=== PATIENT | female | born 1980 | race Caucasian/White ===

== ENCOUNTER 2016-09-26 18:48 | Observation (INO) ==
[2016-09-26] MEDS ORDERED: 0.9 % Sodium Chloride 1,000 ML IVC ONE (20:00)
[2016-09-26] MEDS ORDERED: Prochlorperazine 10 MG/2 ML VIAL IVP STA (20:01)
--- NOTE | 2016-09-26 20:07 | Emergency Department Note ---
Disposition Clinical Impression: Seizure Headache Qualifiers: Headache type: unspecified Headache chronicity pattern: acute headache Intractability: not intractable Qualified Code(s): R51 - Headache Disposition: Admitted As Inpatient Condition: Good Time of Disposition: 01:07 General Adult HPI - General Chief complaint: ED Syncope Stated complaint: Syncope,poss seizure Time Seen by Provider: 09/26/16 19:18 Source: patient Mode of arrival: ambulatory Limitations: no limitations Nursing Notes Reviewed: Yes Vital Signs Reviewed: Yes - History of Present Illness HPI Narrative: Possible seizure today while at [facility]. She was sitting on a ledge whenever she fell backwards into [facility]. Bystander states she had seizure-like activity for approximately 5 seconds. She did urinate on herself. She was confused for approximately 20 minutes after this. Patient does not remember this event. She is reporting a headache at this time. She states it feels like her previous headaches. It is behind her right eye. Pain Scale: 4 - Related Data Home Medications Medication Instructions Recorded Confirmed Amantadine [Symmetrel] 100 mg PO BID 09/26/16 09/26/16 Amitriptyline [Elavil] 25 mg PO DAILY 09/26/16 09/26/16 Bupropion HCl [Wellbutrin Xl] 300 mg PO QAM 09/26/16 09/26/16 Cetirizine HCl [Zyrtec] 10 mg PO BID PRN 09/26/16 09/26/16 Cyclobenzaprine [Flexeril] 10 mg PO TID PRN 09/26/16 09/26/16 Fluticasone Propionate Nasal 1 spr NS BID 09/26/16 09/26/16 [Flonase] Furosemide [Lasix] 20 mg PO DAILY PRN 09/26/16 09/26/16 Omeprazole [PriLOSEC] 20 mg PO DAILY 09/26/16 09/26/16 Pregabalin [Lyrica] 75 mg PO BID 09/26/16 09/26/16 Tramadol HCl [Ultram] 50 mg PO TID PRN 09/26/16 09/26/16 Allergies Allergy/AdvReac Type Severity Reaction Status Date / Time morphine AdvReac Vomiting Verified 09/26/16 22:09 Penicillins AdvReac Vomiting Verified 09/26/16 22:09 Review of Systems: Patient denies any fevers or chills. She denies any vomiting or diarrhea. She does report a headache at this time. She states this is consistent with previous migraines. She reports associated nausea with this. Also some mild photophobia. She denies any visual disturbances. She denies any shortness of breath or chest pain. She denies any swelling or edema to her extremities. All systems ED: reviewed and negative except as stated. Past Medical History - Past Medical History Medical history: Reports: no medical history Psychiatric history: Reports: ADHD - Social History Smoking Status: Former smoker Smokeless Tobacco Status: No Alcohol use: Reports: none Drug use: Reports: none Physical Exam - General Limitations: no limitations General appearance: alert, in no apparent distress - Head Head exam: atraumatic, normocephalic, normal inspection - Eye Eye exam: Present: normal appearance, PERRL, EOMI. Absent: scleral icterus, conjunctival injection - ENT ENT exam: normal exam, normal oropharynx, mucous membranes moist - Neck Neck exam: Present: normal inspection, full ROM, trachea midline. Absent: tenderness, meningismus, lymphadenopathy - Chest Chest inspection: Present: normal inspection - Respiratory Respiratory exam: Present: normal lung sounds bilaterally. Absent: respiratory distress - Cardiovascular Cardiovascular exam: Present: regular rate, normal rhythm, normal heart sounds - Abdominal Exam Abdominal exam: Present: soft, Non-Tender, normal bowel sounds. Absent: tenderness, distention, guarding, rebound, rigidity, organomegaly - Extremities Exam Extremities exam: Present: normal inspection, full ROM, normal capillary refill. Absent: tenderness, pedal edema, calf tenderness - Back Exam Back exam: Present: normal inspection, full ROM. Absent: tenderness, CVA tenderness (R), CVA tenderness (L) - Neurological Exam Neurological exam: Present: alert, oriented X3, CN II-XII intact. Absent: motor sensory deficit - Psychiatric Psychiatric exam: Present: normal affect, normal mood - Skin Skin exam: Present: warm, dry, intact, normal color. Absent: rash, cyanosis, diaphoresis, erythema, pallor Course Course Narrative: Well-appearing female patient presents to the emergency department complaining of a headache. She states she woke up this morning with a headache it resolved and then she had an episode of possible seizure and the headache returned. She states that her headache currently feels like her normal migraines. She is nauseated with it. She does have photophobia. She reports the pain is to the right side of her head behind her eye. She is also reporting that they went to [facility] earlier today and she had a possible seizure. The reports that the patient was sitting on a lead bystanders told her because she was gone at the time that the patient fell backwards into some mulch and had seizure- like activity. The reports she did bite her tongue and she has some urine incontinence. The bystanders reported the seizure activity lasted for seconds. She was then taken to the nurse's station. The states the patient was confused for approximately 20 minutes after the event. Patient has had no seizure history previously. However she has had recent history of 3 concussions over the past 6-7 months. Patient states she frequently gets migraines and was reporting that about 3-4 times a week however they have decreased to 1-2 times a week since she has been on amitriptyline at night. The patient has also been switched recently and placed on Wellbutrin for the past week. She has been taking this to help with her headaches and foggy feeling. She intermittently takes tramadol but has not had this in the past 2 days. She states she has been seen by a concussion clinic up at [facility]. She does not follow with a specific neurologist. She is currently mentating appropriately. She does appear slightly nervous. She does not appear to be in any distress. She states she does get nervous when she comes to the hospital. Her lung sounds are clear heart tones are normal and abdomen is soft and nontender. She denies any urinary symptoms. She denies any hematuria hematochezia or melena. She denies any swelling to her extremities. She denies any visual disturbances. She denies any drug use. We will do CT of patient's head. She is neurologically intact at this time. I do not appreciate any signs of trauma to her tongue however the does report that it was bleeding earlier today. We will also get basic lab workup on the patient. As well as a UA. We will likely admit the patient to the hospital for new onset seizures. - Reevaluation(s) Reevaluation #1: After a long discussion with the patient about the benefits of the lumbar puncture she is requesting to hold off until this can be done under fluoroscopic guidance. Discussed the risks and benefits of this with her and that we would begin her on antibiotics tonight admitted to the hospital for further evaluation in the morning. She expresses understanding and is agreeable with this plan. We will hold off on the LP at this time. Patient was reevaluated and states that her headache is actually getting better at this time. She is still mentating appropriately. She has had no episodes of seizures when she is here. She does have a small tremor in her hands bilaterally. She states this is been going on ever since she was started on Wellbutrin. Time: 23:35 - Consultations Consultation #1: Dr Oneill accepted patient in stable condition. Time: 00:33 Vital Signs Temperature 97.7 F 09/26/16 18:56 Pulse Rate 110 09/26/16 18:56 Respiratory Rate 16 09/26/16 18:56 Blood Pressure 190/95 09/26/16 18:56 O2 Sat by Pulse Oximetry 100 09/26/16 18:56 Temperature 98.2 F 09/27/16 01:18 Pulse Rate 98 09/27/16 01:18 Respiratory Rate 18 09/27/16 01:18 Blood Pressure 163/88 09/27/16 01:18 O2 Sat by Pulse Oximetry 100 09/27/16 01:18 Oxygen Delivery Oxygen Delivery Room Air Medical Decision Making - Medical Records Medical records reviewed: Yes I reviewed the patient's medical records. - Lab Data Lab results reviewed: Yes I reviewed the patient's lab results. Result diagrams: 09/26/16 20:35 09/26/16 20:35 Lab Results 09/26/16 09/26/16 09/26/16 Range/Units 20:35 20:35 20:36 WBC 17.3 H (4.3-11.1) K/mcL RBC 5.05 H (3.82-4.97) M/mcL Hgb 13.2 (11.5-15.4) g/dL Hct 42.5 (35.3-44.9) % MCV 84.2 (83.0-100.0) fL MCH 26.1 L (28.0-33.3) pg MCHC 31.1 L (31.6-35.5) g/dL RDW 15.6 H (11.5-14.5) % Plt Count 316 (140-400) K/mcL MPV 10.6 (9.4-12.4) fL Immature Gran % 0.6 (0-4) % Seg Neutrophils % 82.3 % Lymphocytes % 9.0 % Monocytes % 7.4 % Eosinophils % 0.4 % Basophils % 0.3 % Neutrophils # 14.2 H (1.6-8.9) K/mcL Lymphocytes # 1.6 (0.6-4.6) K/mcL Monocytes # 1.3 (0.0-1.3) K/mcL Eosinophils # 0.1 (0.0-0.6) K/mcL Basophils # 0.1 (0.0-0.2) K/mcL Sodium 140 (136-145) mEq/L Potassium 3.4 L (3.5-4.5) mEq/L Chloride 107 (98-109) mEq/L Carbon Dioxide 25 (19-29) mEq/L BUN 11 (7-20) mg/dL Creatinine 1.17 H (0.57-1.11) mg/dL Est GFR ( Amer) > 60 (> 60) Est GFR (Non-Af Amer) 52 L (> 60) BUN/Creatinine Ratio 9 (6-26) Glucose 93 (70-99) mg/dL Calculated Osmolality 289 (280-300) Calcium 9.3 (8.6-10.8) mg/dL Prolactin 15.62 (5.18-26.53) ng/mL Urine Color Yellow (Yellow) Urine Clarity Clear (Clear) Urine pH 5.5 (5.0-8.0) pH Units Ur Specific [place] 1.027 H (1.010-1.025) Urine Protein Trace (Neg-Trace) mg/dL Urine Glucose (UA) 250 H (Normal) mg/dL Urine Ketones Trace H (Negative) mg/dL Urine Blood Negative (Negative) Urine Nitrite Negative (Negative) Urine Bilirubin Negative (Negative) Urine Urobilinogen Normal (Normal) mg/dL Ur Leukocyte Esterase Small H (Negative) Urine Microscopic RBC 3-5 H (0-3) per hpf Urine Microscopic WBC 5-15 H (0-3) per hpf Ur Squamous Epith Cells Many H (None-Few) per lpf Urine Bacteria Few (None-Few) per hpf Hyaline Casts None Seen (None-Few) per lpf Ur Culture Indicated? YES A (NO) Urine Opiates Screen (Loyvrg=664) ng/mL Ur Barbiturates Screen (Gjznpl=028) ng/mL Ur Phencyclidine Scrn (Cutoff=25) ng/mL Ur Amphetamines Screen (Lmoakq=4306) ng/mL U Benzodiazepines Scrn (Hfcvau=049) ng/mL Urine Cocaine Screen (Cutoff= 300) ng/mL U Marijuana (THC) Screen (Cutoff = 50) ng/mL 09/26/16 Range/Units 20:36 WBC (4.3-11.1) K/mcL RBC (3.82-4.97) M/mcL Hgb (11.5-15.4) g/dL Hct (35.3-44.9) % MCV (83.0-100.0) fL MCH (28.0-33.3) pg MCHC (31.6-35.5) g/dL RDW (11.5-14.5) % Plt Count (140-400) K/mcL MPV (9.4-12.4) fL Immature Gran % (0-4) % Seg Neutrophils % % Lymphocytes % % Monocytes % % Eosinophils % % Basophils % % Neutrophils # (1.6-8.9) K/mcL Lymphocytes # (0.6-4.6) K/mcL Monocytes # (0.0-1.3) K/mcL Eosinophils # (0.0-0.6) K/mcL Basophils # (0.0-0.2) K/mcL Sodium (136-145) mEq/L Potassium (3.5-4.5) mEq/L Chloride (98-109) mEq/L Carbon Dioxide (19-29) mEq/L BUN (7-20) mg/dL Creatinine (0.57-1.11) mg/dL Est GFR ( Amer) (> 60) Est GFR (Non-Af Amer) (> 60) BUN/Creatinine Ratio (6-26) Glucose (70-99) mg/dL Calculated Osmolality (280-300) Calcium (8.6-10.8) mg/dL Prolactin (5.18-26.53) ng/mL Urine Color (Yellow) Urine Clarity (Clear) Urine pH (5.0-8.0) pH Units Ur Specific [place] (1.010-1.025) Urine Protein (Neg-Trace) mg/dL Urine Glucose (UA) (Normal) mg/dL Urine Ketones (Negative) mg/dL Urine Blood (Negative) Urine Nitrite (Negative) Urine Bilirubin (Negative) Urine Urobilinogen (Normal) mg/dL Ur Leukocyte Esterase (Negative) Urine Microscopic RBC (0-3) per hpf Urine Microscopic WBC (0-3) per hpf Ur Squamous Epith Cells (None-Few) per lpf Urine Bacteria (None-Few) per hpf Hyaline Casts (None-Few) per lpf Ur Culture Indicated? (NO) Urine Opiates Screen Negative (Ovqkum=179) ng/mL Ur Barbiturates Screen Negative (Oeminr=733) ng/mL Ur Phencyclidine Scrn Negative (Cutoff=25) ng/mL Ur Amphetamines Screen Negative (Whknwd=1421) ng/mL U Benzodiazepines Scrn Negative (Hsztzm=086) ng/mL Urine Cocaine Screen Negative (Cutoff= 300) ng/mL U Marijuana (THC) Screen Negative (Cutoff = 50) ng/mL - Radiology Data Radiology results reviewed: Yes I reviewed the patient's radiology results. Chest X-Ray 09/26/16 19:19 IMPRESSION: Normal chest x-ray D/ / Trevor Bay MD / Trevor Bay MD Interpreting Provider: Trevor Bay MD Head CT 09/26/16 20:00 IMPRESSION: No acute intracranial abnormality. D/ / Joaquin Wolf MD / Joaquin Wolf MD Interpreting Provider: Joaquin Wolf MD - EKG Data EKG #1 EKG results narrative: Patient's EKG shows a sinus tachycardia at 101 bpm low-voltage throughout with no acute ST or T-wave changes. This is unchanged from her prior EKG from 2013 Attestation Statement - Attestation Attestation: I personally interviewed and examined this patient and my medical decision- making was reviewed with the ED Resident Physician, Dr. Roque I agree with the documented findings, disposition and treatment plan as described except to the extent set forth below. Pt is a 36 yo wf, hx of migraine LEMUS's who presents to the ER by PV with her SO, with reports of syncope vs seizure. Pt was at [facility] today and was sitting when she fell backwards and began with shaking, urinary incontinence, and tongue biting; followed by a period of approx 20 min that she was resting and awake but confused. Pt with GCS=15 on arrival, no focal neuro deficits, with no prior history of seizures. Patient denies any falls or trauma prior to this episode. Patient states that she awoke this morning approximately 8 AM with a right-sided headache that felt very similar to her prior . Progressed to involve her entire head this one remained right-sided and was mild, patient took Excedrin with complete resolution of headache and proceeded to [facility] with friends in was enjoying the day. Patient states she did have a recurrence of her headache this afternoon and was sitting on the edge of a low wall that had mulch behind it and was witnessed to fall backwards and have this what appeared to be a seizure episode. Patient does complain of ongoing right- sided headache at this time associated with photophobia and mild nausea. I agree with patient's physical exam findings as documented. Patient is awake alert and oriented 4 in no acute distress. Patient is tachycardic and hypertensive on arrival. Patient with no focal neurologic deficits on examination good strength in bilateral upper and lower extremities bilaterally. Patient was placed in seizure precautions IV saline well was established, patient was placed on library monitor and continuous pulse ox. EKG was obtained which showed a normal sinus rhythm with no acute ST or T-wave changes. Patient had labs drawn and sent was continued to be monitored closely and was sent to CT for acute neurologic imaging. Portal chest x-ray was also obtained. Both imaging studies were within normal limits no acute abnormalities were seen. Patient has remained neurologically stable throughout her ED course with no recurrence of seizure activity. Patient's white count is significantly elevated today compared to 6 days ago when she had blood work done. Patient is afebrile here, denies any preceding URI symptoms sinus symptoms cold coughs sore throat or any other infectious-like symptoms prior to the onset of today's headaches. Patient gets frequent migraines that are similar in onset duration character and severity to today's headache. Planned to perform lumbar puncture for complete evaluation of fever with neurologic changes seizure which is new onset and elevated white count. 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 We will go ahead and empirically cover her with antibiotics at this time. Patient remained hemodynamically stable and on reevaluation headache has resolved. Patient will be admitted for further evaluation of new onset seizures and headaches.
[2016-09-26 20:41] LABS: Bilirubin,Urine Negative (Negative); Blood,Urine Negative (Negative); Color,Urine Yellow (Yellow); Glucose,Urine (UA) 250 mg/dL (Normal); Ketones,Urine Trace mg/dL (Negative); Leukocyte Esterase,Urine Small (Negative); Nitrite,Urine Negative (Negative); PH,Urine 5.5 pH Units (5.0-8.0); Protein,Urine Trace mg/dL (Neg-Trace); Specific Gravity,Urine 1.027 (1.010-1.025); Urobilinogen,Urine Normal (Normal)
[2016-09-26 20:42] LABS: Bacteria,Urine Few per hpf (None-Few); Hyaline Casts,Urine None Seen per lpf (None-Few); Squamous Epithelial Cell,Urine Many per lpf (None-Few)
[2016-09-26 20:43] LABS: Clarity,Urine Clear (Clear)
[2016-09-26 20:45] LABS: Basophils # 0.1 K/mcL (0.0-0.2); Basophils % 0.3 %; Eosinophils # 0.1 K/mcL (0.0-0.6); Eosinophils % 0.4 %; Hematocrit 42.5 % (35.3-44.9); Hemoglobin 13.2 g/dL (11.5-15.4); Immature Granulocytes % 0.6 % (0-4); Lymphocytes # 1.6 K/mcL (0.6-4.6); Mean Corpuscular HGB Conc 31.1 g/dL (31.6-35.5); Mean Corpuscular Hemoglobin 26.1 pg (28.0-33.3); Mean Corpuscular Volume 84.2 fL (83.0-100.0); Mean Platelet Volume 10.6 fL (9.4-12.4); Monocytes # 1.3 K/mcL (0.0-1.3); Monocytes % 7.4 %; Neutrophils # 14.2 K/mcL (1.6-8.9); Platelet Count 316 K/mcL (140-400); Red Blood Count 5.05 M/mcL (3.82-4.97); Red Cell Distribution Width 15.6 % (11.5-14.5); Segmented Neutrophils % 82.3 %
[2016-09-26 20:55] LABS: Amphetamine Screen,Urine Negative ng/mL (Cutoff=1000); Barbiturate Screen,Urine Negative ng/mL (Cutoff=200); Benzodiazepines Screen,Urine Negative ng/mL (Cutoff=200); Cannabinoid Screen,Urine Negative ng/mL (Cutoff = 50); Cocaine Screen,Urine Negative ng/mL (Cutoff= 300); Opiate Screen,Urine Negative ng/mL (Cutoff=300); Phencyclidine Screen,Urine Negative ng/mL (Cutoff=25)
[2016-09-26 20:57] LABS: BUN/Creatinine Ratio 9 (6-26); Blood Urea Nitrogen 11 mg/dL (7-20); Calcium 9.3 mg/dL (8.6-10.8); Carbon Dioxide 25 mEq/L (19-29); Chloride 107 mEq/L (98-109); Glucose 93 mg/dL (70-99); Osmolality,Calculated 289 (280-300); Potassium 3.4 mEq/L (3.5-4.5); Sodium 140 mEq/L (136-145); eGFR For African Americans > 60 (> 60); eGFR For Non-African Americans 52 (> 60)
[2016-09-26] MEDS ORDERED: Ketorolac 15 MG/ML VIAL IVP ONE (21:30)
[2016-09-26 21:44] LABS: Prolactin 15.62 ng/mL (5.18-26.53)
[2016-09-26] MEDS ORDERED: Vancomycin 2,000 MG in D5% in Water 500 ML IVPB ONE (23:42)
[2016-09-27] MEDS ORDERED: Furosemide 20 MG TABLET PO PRN (01:45)
[2016-09-27] MEDS ORDERED: Loratadine 10 MG TABLET PO PRN (01:45)
[2016-09-27] MEDS ORDERED: traMADol 50 MG TABLET PO PRN (01:45)
[2016-09-27] MEDS ORDERED: *HR* LORazepam 2 MG/ML VIAL IVP PRN (01:46)
[2016-09-27] MEDS ORDERED: *HR* OxyCODONE/APAP 5/325 TABLET PO ONE (01:47)
[2016-09-27] MEDS ORDERED: *HR* Metoprolol 5 MG/5 ML VIAL IVP PRN (01:47)
[2016-09-27] MEDS ORDERED: Ondansetron 4 MG/2 ML VIAL IVP PRN (01:49)
[2016-09-27] MEDS ORDERED: Naloxone 0.4 MG/ML INJ IVP PRN (01:49)
[2016-09-27] MEDS ORDERED: 0.9 % Sodium Chloride w KCl 20 MEQ/1,000 ML MLS IVC SCH (02:00)
--- NOTE | 2016-09-27 02:06 | Internal Med History&Physical ---
Date of Encounter: 09/27/16 Time of Encounter: 01:30 Assessment and Plan (1) New onset seizure Current visit: Yes Status: Acute Witnessed tonic clonic seizure at a [facility] today History of recurrent concussions in the last few months secondary to work injuries No recurrent episode since hospitalization CT head negative for any acute intracranial abnormality will obtain MR head Neurology consultation requested EEG Ativan 2mg IV PRN seizure will closely monitor Hold Welbutrin at this time (2) Headache Current visit: Yes Status: Chronic continue home medications Improved since admission Qualifiers: Headache type: unspecified Headache chronicity pattern: unspecified pattern Intractability: not intractable Qualified Code(s): R51 - Headache (3) Leukocytosis Current visit: Yes Status: Acute Can be reactive secondary to the seizure episode Patient received one dose of Vancomycin and Ceftriaxone in the ER NO clinical signs present at this time concerning for meningitis, Evaluate in Am for the need for LP and continuation of abx will closely monitor Qualifiers: Leukocytosis type: unspecified Qualified Code(s): D72.829 - Elevated white blood cell count, unspecified (4) DVT prophylaxis Current visit: Yes Status: Acute Early ambulation (5) Chronic lower back pain Current visit: Yes Status: Chronic continue home medications Qualifiers: Back pain laterality: unspecified Sciatica presence: with sciatica Sciatica laterality: sciatica laterality unspecified Qualified Code(s): M54.40 - Lumbago with sciatica, unspecified side; G89.29 - Other chronic pain Internal Medicine - H&P: HPI Chief complaint: new onset seizures Admitted From: Home Plans for Post Hospital Care: Home History of present illness: Ms. Simmons is a 36 year old female with PMH Of ADHD, chronic back pain secondary to lumbar degenerative disc disease, migraine, concussions secondary to work related injuries, and morbid obesity who is brought to the ER after witnessed episode of new onset seizure. Patient was at [facility] earlier today when she had a witness seizure episode. She fell backwards from a ledge, noted to have generalized tonic clonic seizure like activity with loss of bladder function and tongue bitting. Patient was noted to remain in post ictal state for 20 minutes after the witnessed episode. No prior episodes have been reported. No recurrent episodes have been reported since her hospitalization. She also reports of recently starting Welbutrin for ADHD and has been noticing tremors in her bilateral hands. At this time she is resting in bed and reports of generalized headache consistent with her chronic migraines. Denies any lightheadedness, dizziness, chest pain, sob, abd pain, n/v , fever, or chills at this time. Noted to have leukocytosis in the ER along with headache, ER physician ordered a LP, however patient refused and wishes to be done under Fluorscopy. Denies smoking history Past Med Surg Social Fam HX - Past Medical History Medical history: no medical history Psychiatric history: ADHD - Past Surgical History Surgical History: no surgical history - Social History Smoking Status: Former smoker Smokeless Tobacco Status: No Alcohol use: none Drug use: none - Family History Grandfather Living Status: Age at : 70 Hx Family Cancer: Yes (Pancreatic cancer) Grandmother Living Status: Still Living Hx Family Endocrine Disorder: Yes (DM type two) Internal Medicine - H&P: Meds Amantadine [Symmetrel] 100 mg PO BID 09/26/16 [History] Amitriptyline [Elavil] 25 mg PO DAILY 09/26/16 [History] Bupropion HCl [Wellbutrin Xl] 300 mg PO QAM 09/26/16 [History] Cetirizine HCl [Zyrtec] 10 mg PO BID PRN 09/26/16 [History] Cyclobenzaprine [Flexeril] 10 mg PO TID PRN 09/26/16 [History] Fluticasone Propionate Nasal [Flonase] 1 spr NS BID 09/26/16 [History] Furosemide [Lasix] 20 mg PO DAILY PRN 09/26/16 [History] Omeprazole [PriLOSEC] 20 mg PO DAILY 09/26/16 [History] Pregabalin [Lyrica] 75 mg PO BID 09/26/16 [History] Tramadol HCl [Ultram] 50 mg PO TID PRN 09/26/16 [History] Allergies morphine Adverse Reaction (Verified 09/26/16 22:09) Vomiting Penicillins Adverse Reaction (Verified 09/26/16 22:09) Vomiting All Systems PM: A 10-system review of systems was performed and is negative for pertinent findings except as documented above in the HPI. - Constitutional Constitutional: as per HPI - Constitutional Vitals: Temp Pulse Resp BP Pulse Ox 98.2 F 98 18 163/88 100 09/27/16 01:18 09/27/16 01:18 09/27/16 01:18 09/27/16 01:18 09/27/16 01:18 General appearance: Present: cooperative, A&O X 3, morbidly obese, pleasant, no acute distress, answers questions appropriately - Head Head exam: Present: atraumatic, normocephalic - Eye Eye exam: Present: conjuntiva pink, sclera anicteric - Respiratory Respiratory exam: Present: CTAB. Absent: accessory muscle use, rales, rhonchi, wheezes - Cardiovascular Cardiovascular exam: Present: +S1, +S2, tachycardia. Absent: diastolic murmur, gallop, rubs, systolic murmur - GI/Abdominal GI/Abdominal exam: Present: normal bowel sounds, soft, no peritoneal signs. Absent: distended, tenderness - Extremities Exam Extremities exam: Present: warm, radial pulses palpable and symetrical. Absent : calf tenderness, cyanotic, pedal edema - Neurological Exam Neurological exam: Present: alert, oriented X3, no focal deficits, strengths equal and symetr throughout. Absent: pronater drift, facial droop, speech deficit - Psychiatric Psychiatric exam: Present: normal affect, normal mood Internal Med - H&P Results - Labs CBC & Chem 7: 09/26/16 20:35 09/26/16 20:35
[2016-09-27 06:24] LABS: Basophils % 0.5 %; Eosinophils # 0.1 K/mcL (0.0-0.6); Eosinophils % 1.4 %; Hematocrit 42.1 % (35.3-44.9); Hemoglobin 12.5 g/dL (11.5-15.4); Immature Granulocytes % 0.4 % (0-4); Lymphocytes # 1.4 K/mcL (0.6-4.6); Lymphocytes % 16.9 %; Mean Corpuscular HGB Conc 29.7 g/dL (31.6-35.5); Mean Corpuscular Hemoglobin 26.2 pg (28.0-33.3); Mean Corpuscular Volume 88.3 fL (83.0-100.0); Mean Platelet Volume 11.1 fL (9.4-12.4); Monocytes # 0.8 K/mcL (0.0-1.3); Monocytes % 9.3 %; Platelet Count 201 K/mcL (140-400); Red Blood Count 4.77 M/mcL (3.82-4.97); Red Cell Distribution Width 15.8 % (11.5-14.5); Segmented Neutrophils % 71.5 %
[2016-09-27 06:34] LABS: BUN/Creatinine Ratio 10 (6-26); Blood Urea Nitrogen 9 mg/dL (7-20); Calcium 8.4 mg/dL (8.6-10.8); Carbon Dioxide 20 mEq/L (19-29); Chloride 109 mEq/L (98-109); Glucose 82 mg/dL (70-99); Magnesium 1.8 mg/dL (1.6-2.6); Osmolality,Calculated 280 (280-300); Phosphorous 3.2 mg/dL (2.3-4.7); Sodium 136 mEq/L (136-145); eGFR For African Americans > 60 (> 60); eGFR For Non-African Americans > 60 (> 60)
--- NOTE | 2016-09-27 07:32 | Event Note ---
Date of Encounter: 09/27/16 Time of Encounter: 07:20 36/F Brief past medical history: ADHD, chronic back pain, migraine, multiple contusions Emergency room evaluation: Patient was evaluated in the emergency room for new onset of seizure. Patient had underlying leukocytosis, she was started on IV antibiotics. Hospital course: Patient was hospitalized for further workup. Noted that CT scan of the head is negative for any acute intracranial event. IV antibiotics were discontinued. Neurology evaluation requested along with MRI scan of the brain and EEG. This morning patient is comfortably lying in bed. Patient denies chest pain, palpitation, abdominal pain nausea, vomiting or diarrhea. Patient does have history of palpitations 2 days before the episode. This episode of seizure happened in [facility]. There was a witness who claims that this episode lasted for 30 seconds. Patient had amnesia for 30 minutes after the episode. Patient had a bladder incontinence. Patient had a tongue bite. On examination: Pulse: 90, blood pressure: 150/97, respiratory rate: 17 per minute, oxygen saturation on room air: 97% I examined the patient at bedside where her is present during my examination. Patient has permission to talk about her healthcare status in front of her . Examination of head, eyes, nose, ear, throat and cervical area did not reveal any abnormality. Tongue bite noted. Examination of cardiovascular system did not reveal any abnormal heart sounds or murmur. Examination of the respiratory system did not reveal abnormal breath sounds. Her abdomen was soft nontender. Brief neurological examination was within normal limit. Skin did not show any break or bruises. Assessment and plan: -We will continue present management. -We will await for neurology evaluation. -At this point patient denies for lumbar puncture. -Neurology to address issues regarding driving.
[2016-09-27 07:53] LABS: Neutrophils # 5.9 K/mcL (1.6-8.9)
[2016-09-27] MEDS ORDERED: Fluticasone Propionate Nasal 50 MCG/SPRAY BOTTLE NS SCH (09:00)
[2016-09-27] MEDS ORDERED: Pregabalin 75 MG CAPSULE PO SCH (09:00)
[2016-09-27] MEDS ORDERED: Acetaminophen/Aspirin/Caffeine TABLET PO PRN (10:31)
--- NOTE | 2016-09-27 11:15 | Neurology - Consult Note ---
Date of Encounter: 09/27/16 Time of Encounter: 10:30 Assessment and Plan (1) Seizure Current Visit: Yes Status: Acute Patient's history of sudden onset tonic-clonic activity with postictal state, tongue biting, and incontinence makes patient's episode more likely seizure. Patient was concerning for possible meningitis with a leukocytosis of 17.3. Patient's WBC is 8.3 today. Patient's elevation is most likely stress related secondary to seizure activity. Patient has a mild hypo-Cassini but otherwise patient's labs are unremarkable today. Patient's head CT and MRI did not show any signs of hemorrhage or infarct. Plan: EEG History of Present Illness Chief complaint: seizure HPI: Ms. Simmons is a 36 year old female with past medical history for 3 concussions in the past 6 months He complains of seizure 1 day ago. Patient states that she is taking Dilantin and she was feeling hot and exhausted and he [place] senior living in the shade and sat on a brick wall were moments later she fell backwards and a witness states that she started shaking violently seizure-like activity for about 30 seconds or so and then was confused for about 30 minutes afterwards. Patient bit her tongue, had urinary incontinence. Patient denies previous seizure activity. Patient states that for the prior 3 days she started having upper extremity tremors which she thought was secondary to newly starting wellbutrin times one week ago. Denies alcohol use, illicit drug use, quit smoking 4 years ago Patient denies any fever, chills, nausea, vomiting, shortness of breath, chest pain, abdominal pain, back pain, neck pain leading up to the event. Patient admits to migraine-type headache with sensitivity to light and tinnitus was no new change in symptomology. Patient states that she currently has a migraine now and has some sensitivity to light and tinnitus but denies any other symptoms at this time. Past Med Surg Social Fam HX - Past Medical History Attestation: Yes The following information was validated with the patient. Source: patient Medical history: no medical history Psychiatric history: ADHD - Past Surgical History Surgical History: no surgical history - Social History Smoking Status: Former smoker Smokeless Tobacco Status: No Alcohol use: none Drug use: none - Family History Grandfather Living Status: Age at : 70 Hx Family Cancer: Yes (Pancreatic cancer) Grandmother Living Status: Still Living Hx Family Endocrine Disorder: Yes (DM type two) Medications and Allergies Amantadine [Symmetrel] 100 mg PO BID 09/26/16 [History] Amitriptyline [Elavil] 25 mg PO DAILY 09/26/16 [History] Bupropion HCl [Wellbutrin Xl] 300 mg PO QAM 09/26/16 [History] Cetirizine HCl [Zyrtec] 10 mg PO BID PRN 09/26/16 [History] Cyclobenzaprine [Flexeril] 10 mg PO TID PRN 09/26/16 [History] Fluticasone Propionate Nasal [Flonase] 1 spr NS BID 09/26/16 [History] Furosemide [Lasix] 20 mg PO DAILY PRN 09/26/16 [History] Omeprazole [PriLOSEC] 20 mg PO DAILY 09/26/16 [History] Pregabalin [Lyrica] 75 mg PO BID 09/26/16 [History] Tramadol HCl [Ultram] 50 mg PO TID PRN 09/26/16 [History] Allergies morphine Adverse Reaction (Verified 09/26/16 22:09) Vomiting Penicillins Adverse Reaction (Verified 09/26/16 22:09) Vomiting All Systems: A 10-system review of systems was performed and is negative for pertinent findings except as documented above in the HPI. - Constitutional Constitutional ROS IM: as per HPI Physical Examination - Vital Signs Vital Signs: Initial Vital Signs Temp Pulse Resp BP Pulse Ox 97.7 F 110 16 190/95 100 09/26/16 18:56 09/26/16 18:56 09/26/16 18:56 09/26/16 18:56 09/26/16 18:56 - Constitutional General appearance: comfortable - Neurologic Sensorimotor examination: intact Detailed motor examination: grossly full strength in all extremities, full strength in all major muscle groups Motor examination - right side: 5: deltoids, biceps, triceps, wrist flexion, wrist extension, corn sheller operator, hip flexors, tibialis Anterior, quadriceps, toe extension (EHL), plantarflexion Motor examination - left side: 08/03: deltoids, biceps, triceps, wrist flexion, wrist extension, hip flexors, corn sheller operator, quadriceps, tibialis Anterior, toe extension (EHL), plantarflexion Detailed sensory examination: intact, light touch Reflexes: Biceps: 2+, Triceps: 2+, Brachioradialis: 2+, Patella: 2+, Achilles: 2 + Mental Status Examination: awake, alert, oriented to person, oriented to place, oriented to time, follows commands appropriately, answers questions appropriately, no agnosia, no aphasia, no aproxia Cranial nerve examination: PERRL, EOMI, visual rodgers intact, corneal reflexes brisk symmetrically, sensory to face intact, mastication intact, no facial asymmetry is present, no dysarthria, hearing is intact symmetrically, soft palate elevates bilaterally upon phonation, gag reflex intact, flexes SCM and trapezius muscles symmetrically with full power, tongue protrudes midline, no atrophy or facial fasiculations present Cerebellar examination: no dysmetria, performs finger to nose and heel to garcia symmetrically without ataxia, no gait ataxia, no truncal ataxia, no difficulty with rapid alternating movements Results - Laboratory Findings CBC and BMP: 09/27/16 06:03 09/27/16 06:03 Abnormal lab findings: Abnormal lab results MCH 26.2 pg (28.0-33.3) L 09/27/16 06:03 MCHC 29.7 g/dL (31.6-35.5) L 09/27/16 06:03 RDW 15.8 % (11.5-14.5) H 09/27/16 06:03 Calcium 8.4 mg/dL (8.6-10.8) L 09/27/16 06:03 Ur Specific [place] 1.027 (1.010-1.025) H 09/26/16 20:36 Urine Glucose (UA) 250 mg/dL (Normal) H 09/26/16 20:36 Urine Ketones Trace mg/dL (Negative) H 09/26/16 20:36 Ur Leukocyte Esterase Small (Negative) H 09/26/16 20:36 Urine Microscopic RBC 3-5 per hpf (0-3) H 09/26/16 20:36 Urine Microscopic WBC 5-15 per hpf (0-3) H 09/26/16 20:36 Ur Squamous Epith Cells Many per lpf (None-Few) H 09/26/16 20:36 Ur Culture Indicated? YES (NO) A 09/26/16 20:36 - Diagnostic Findings Additional findings: Chest X-Ray 09/26/16 19:19 IMPRESSION: Normal chest x-ray D/ / Trevor Bay MD / Trevor Bay MD Interpreting Provider: Trevor Bay MD Head CT 09/26/16 20:00 IMPRESSION: No acute intracranial abnormality. D/ / Joaquin Wolf MD / Joaquin Wolf MD Interpreting Provider: Joaquin Wolf MD Brain MRI 09/27/16 01:48 IMPRESSION: No acute intracranial abnormality. The bilateral hippocampal and parahippocampal structures are within normals. D/ / Markel Benson MD / Markel Benson MD Interpreting Provider: Markel Benson MD Consult Discharge Plan - Plan Referrals: Anat Shaw, WARD NURSE [Primary Care Provider] - 10/12/16 11:30 am
--- NOTE | 2016-09-27 11:58 | EEG/EMG/Oth Biometrics Report ---
EEG Procedure Report Date of procedure: 09/27/16 EEG Procedure: Routine EEG Procedure Note: Medication: no anticonvulsants listed. Report: This EEG was acquired with standard international 10-20 electrode placement system with EKG recording. The Background activity during this EEG was characterized by the presence of posterior dominant alpha rhythm with best frequency up to 10Hz. The background activity was reactive to eye openings. Sleep stages were characterized by presence of Vertex waves, K-complexes and sleep spindles. There are no electricographic seizures identified during this tracing. There are however, few intermittent, diffuse sharp/slow waves, occurring synchronously , during drowsiness. No focal slowing noted during this recording. Photic stimulation produced photic driving at the bilateral occipital region. Hyperventilation procedure produced no abnormalities. EKG tracing showed no significant cardiac dysarrhythmia. Impression: This is a mild abnormal EEG due to presence of few intermittent, synchronous high amplitude sharp/slow wave activity during drowsiness. Clinical Correlation: This EEG showed abnormal findings that may suggest increased susceptibility for a generalized seizure disorder. This could be seen as an interictal phenomenon in patients with generalized epilepsy. Clinical correlation is advised. Prolonged EEG recording can be useful in seizure confirmation.
--- NOTE | 2016-09-27 12:01 | Electrocardiograph Report ---
[address] [address] Test Date: 2016-09-26 Pat Name: Renetta Simmons Department: 102 Room: 2NE16 Gender: F Speech Therapy Assistant: Andrae : 1980 Requested By: Giovanni Reveles Order Number: [id number] Reading MD: Ghulam Rothman MD Measurements Intervals Holley Rate: 101 P: 46 LA: 140 QRS: 4 QRSD: 77 T: 2 QT: 343 QTc: 401 Interpretive Statements SINUS TACHYCARDIA LOW QRS VOLTAGE IN PRECORDIAL LEADS Electronically Signed On 09-27-2016 11:59:53 EDT by Ghulam Rothman MD
[2016-09-27] MEDS ORDERED: *HR* Promethazine 25 MG/ML VIAL IVP ONE (13:59)
[2016-09-27] MEDS ORDERED: Ketorolac 30 MG/ML VIAL IVP ONE (14:00)
[2016-09-27 15:42] VITALS: BP 149/92
--- NOTE | 2016-09-27 17:31 | Discharge Summary ---
Date of Encounter: 09/27/16 Time of Encounter: 17:29 - Discharge Diagnosis (1) New onset seizure Priority: Primary Status: Acute (2) Headache Priority: Secondary Status: Chronic Qualifiers: Headache type: unspecified Headache chronicity pattern: unspecified pattern Intractability: not intractable Qualified Code(s): R51 - Headache (3) Chronic lower back pain Priority: Secondary Status: Chronic Qualifiers: Back pain laterality: unspecified Sciatica presence: with sciatica Sciatica laterality: sciatica laterality unspecified Qualified Code(s): M54.40 - Lumbago with sciatica, unspecified side; G89.29 - Other chronic pain (4) DVT prophylaxis Priority: Secondary Status: Acute - Discharge Medications Home Medications: Amantadine [Symmetrel] 100 mg PO BID 09/26/16 [History] Amitriptyline [Elavil] 25 mg PO DAILY 09/26/16 [History] Cetirizine HCl [Zyrtec] 10 mg PO BID PRN 09/26/16 [History] Cyclobenzaprine [Flexeril] 10 mg PO TID PRN 09/26/16 [History] Fluticasone Propionate Nasal [Flonase] 1 spr NS BID 09/26/16 [History] Furosemide [Lasix] 20 mg PO DAILY PRN 09/26/16 [History] Omeprazole [PriLOSEC] 20 mg PO DAILY 09/26/16 [History] Pregabalin [Lyrica] 75 mg PO BID 09/26/16 [History] Tramadol HCl [Ultram] 50 mg PO TID PRN 09/26/16 [History] Allergies/Adverse Reactions: Allergies morphine Adverse Reaction (Verified 09/26/16 22:09) Vomiting Penicillins Adverse Reaction (Verified 09/26/16 22:09) Vomiting Procedures/tests Complete & Pending: Procedures Performed prior 72 hours Category Date Time Status MR head/brain wo con [MR] Routine MRI 09/27/16 01:48 Completed Date of admission: 09/27/16 00:40 Primary care physician: Anat Shaw CNP Consults: 09/27/16 01:50 Consult to Neurology [CONS] Routine Consulting Provider: Neurology [facility] Reason for Consult: NEW ONSET SEIZURES Call Completed: No 09/27/16 09:32 Consult to Interpret Exam [CONS] Routine Consulting Provider: Dominique Lilly Consult to Interpret Exam: Interpret EEG Discharging clinician: Gaurav Hummel - Patient Status Disposition: Home, Self-Care Condition: Good Functional capacity at discharge: independent ambulation Overall status at discharge: patient is progressing back to baseline - Discharge Instructions Follow Up With: Anat Shaw CNP [Primary Care Provider] - 10/12/16 11:30 am - Diet and Activity Activity: increase activity as tolerated Diet: low fat, low cholesterol Interval History: Ms. Simmons is a 36 year old female with PMH Of ADHD, chronic back pain secondary to lumbar degenerative disc disease, migraine, concussions secondary to work related injuries, and morbid obesity who is brought to the ER after witnessed episode of new onset seizure. Patient was at [facility] earlier today when she had a witness seizure episode. She fell backwards from a ledge, noted to have generalized tonic clonic seizure like activity with loss of bladder function and tongue bitting. Patient was noted to remain in post ictal state for 20 minutes after the witnessed episode. No prior episodes have been reported. No recurrent episodes have been reported since her hospitalization. She also reports of recently starting Welbutrin for ADHD and has been noticing tremors in her bilateral hands. At this time she is resting in bed and reports of generalized headache consistent with her chronic migraines. Denies any lightheadedness, dizziness, chest pain, sob, abd pain, n/v , fever, or chills at this time. Noted to have leukocytosis in the ER along with headache, ER physician ordered a LP, however patient refused and wishes to be done under Fluorscopy. Hospital course: Patient was hospitalized for further workup. Noted that CT scan of the head is negative for any acute intracranial event. IV antibiotics were discontinued. Neurology evaluation requested along with MRI scan of the brain and EEG. This morning patient is comfortably lying in bed. Patient denies chest pain, palpitation, abdominal pain nausea, vomiting or diarrhea. Patient does have history of palpitations 2 days before the episode. This episode of seizure happened in [facility]. There was a witness who claims that this episode lasted for 30 seconds. Patient had amnesia for 30 minutes after the episode. Patient had a bladder incontinence. Patient had a tongue bite. On examination: Pulse: 90, blood pressure: 150/97, respiratory rate: 17 per minute, oxygen saturation on room air: 97% I examined the patient at bedside where her is present during my examination. Patient has permission to talk about her healthcare status in front of her . Examination of head, eyes, nose, ear, throat and cervical area did not reveal any abnormality. Tongue bite noted. Examination of cardiovascular system did not reveal any abnormal heart sounds or murmur. Examination of the respiratory system did not reveal abnormal breath sounds. Her abdomen was soft nontender. Brief neurological examination was within normal limit. Skin did not show any break or bruises. MRI scan of the brain did not show any abnormality. Patient was seen by neurology. I am going to copy and paste the neurology recommendations which will help if this discharge summary is being seen by patient's PCP/neurology. Following is a summary of a neurology consult "This 36 year old woman with ADHD, morbid obesity, chronic back pain who developed witnessed GTC, with tongue biting, likely a seizure. No history of previous seizure disorder. Has been taking strattera one week ago, switched to Wellbutrin. Also on Tramadol for back pain for about a year. MRI of brain showed normal study. EEG showed few sharp/slow wave, intermittent, synchronous during drowsiness may indicate increased risk of generalized epilepsy but overall speaking it is thought that the seizure was provoked. Will recommend no antiepileptic therapy at this time. Discontinue Wellbutrin. Follow up with PCP for treatment of ADHD and the use of Tramadol. May be slowly tapering off the use of Tramadol in the future. Patient should be advised not to drive until three months seizure free. Other seizure precautions advised. Okay discharge home" Plan: Patient can go home today. I discontinued Wellbutrin. informed patient and she verbalized understanding. All questions answered and the time of discharge. Patient does not have any questions, concerns, update or recommendation - Time Spent with Patient Total time spent providing and/or coordinating discharge services: - Constitutional Vitals: Temp Pulse Resp BP Pulse Ox 98.1 F 91 17 149/92 97 09/27/16 15:40 09/27/16 15:40 09/27/16 15:40 09/27/16 15:40 09/27/16 07:59 General appearance: Present: cooperative, A&O X 3, morbidly obese, pleasant, no acute distress, answers questions appropriately - Head Head exam: Present: atraumatic, normocephalic - Eye Eye exam: Present: PERRL, conjuntiva pink, sclera anicteric Pupils: Present: PERRL - Neck Neck exam general surgery: Present: supple, trachea midline. Absent: lymphadenopathy - Respiratory Respiratory exam: Present: CTAB. Absent: accessory muscle use, rales, rhonchi, wheezes - Cardiovascular Cardiovascular exam: Present: RRR, +S1, +S2. Absent: diastolic murmur, gallop, rubs, systolic murmur - GI/Abdominal GI/Abdominal exam: Present: normal bowel sounds, soft, no peritoneal signs. Absent: distended, tenderness - Extremities Exam Extremities exam: Present: warm, radial pulses palpable and symetrical. Absent : calf tenderness, cyanotic, pedal edema - Neurological Exam Neurological exam: Present: CN II-XII intact, oriented X3, no focal deficits. Absent: pronater drift, facial droop, speech deficit - Skin Skin exam: Present: dry, intact
== END 2016-09-27 18:31 | disposition home or self-care (01) ==
LOC: 2NENU 18:48 → EMEROO 18:48 → 2NENU 09-27 00:58
PROVIDERS: ADMIT Internal Medicine; ATTEND Internal Medicine